=== PATIENT | male | born 1970 | race Asian ===

== ENCOUNTER 2020-03-31 06:22 | Day surgery (SDC) | payer OTHER ==
[~2020-03-31] VITALS: Ht 165.1 cm; Wt 56.8 kg
[~2020-03-31 06:22] MED LIST: SODIUM CHLORIDE 0.9% 1,000 ML ONE
[2020-03-31] MEDS ORDERED: SODIUM CHLORIDE 0.9% 1,000 ML IV ONE (06:30)
[2020-03-31] MEDS ORDERED: MIDAZOLAM HCL 2 MG/2 ML VIAL ONE (07:51)
[2020-03-31] MEDS ORDERED: FentaNYL CITRATE-PF 100 MCG/2 ML VIAL ONE (07:52)
[2020-03-31] MEDS ORDERED: MethylPREDNISolone SOD SUCC 125 MG/2 ML VIAL IVP ONE (09:00)
[2020-03-31] MEDS ORDERED: MethylPREDNISolone SOD SUCC 125 MG/2 ML VIAL ONE (09:19)
[2020-03-31] MEDS ORDERED: OXYGEN THERAPY IH SCH (20:00)
== END 2020-03-31 10:45 | disposition home or self-care (01) ==
LOC: SURGERY 06:22
PROVIDERS: ATTEND Internal Medicine Critical Care Medicine
DX: J38.4 Edema of larynx (principal); B37.0 Candidal stomatitis
CPT/HCPCS: 31623; 31624; 71045; 87015; 87070; 87101; 87205; 87206; 87220; 87635; 88108; 88312; J2250; J2930; J3010; J7030